=== PATIENT | female | born 1985 | race Caucasian/White ===

== ENCOUNTER 2024-09-10 22:14 | Emergency (ER) | payer MEDICAID ==
[~2024-09-10] VITALS: Ht 170.2 cm; Wt 73.0 kg
[2024-09-10 22:17] VITALS: O2SAT 98
[2024-09-11] MEDS: ONDANSETRON 4MG ODT PO ONE (02:39)
[2024-09-11 03:09] VITALS: BP 140/94; PULSE 69; RESP 20; TEMP 36.8; O2SAT 99
[2024-09-11] MEDS: LORAZEPAM 0.5MG TABLET PO ONE (04:44)
== END 2024-09-11 04:45 | disposition home or self-care (01) ==
LOC: ER 22:14
DX: F41.9 Anxiety disorder, unspecified (principal); R11.10 Vomiting, unspecified; Z87.440 Personal history of urinary (tract) infections
CPT/HCPCS: 99283; 71045; Q0162